=== PATIENT | female | born 1990 | race Caucasian/White ===

== ENCOUNTER 2019-10-06 02:27 | Inpatient (IN) | payer BC ==
[2019-10-06] MEDS ORDERED: ASPIR-LOW81 MG PO (04:41)
[2019-10-06] MEDS ORDERED: VITAFOL-OB+DHA1 EACH PO (04:42)
--- NOTE | 2019-10-06 13:41 | NUR ---
10/06/19 134[address] [place] [address] 1325 PATIENT BACK TO ROOM FROM OR. PATIENT AWAKE TALKING WITH STAFF. BEDSIDE REPORT FROM BRADY REINA CRNA. IV SITE INTACT, LR WITH POTOSSIN DRIPPING. PATIENT ON ROOM AIR BREATHING REGULAR AND EVEN 100% SAT. 1135 PATIENT REPORTS NO FEELING TO UBILICUS LEVEL WITH ASSESMENT. NO PAIN OR NAUSEA REPORTED. BREATHING REGULAR EVEN AND REGULAR, CONVERSING WITH . 1140 BABY TO BREAST, PATIENT APPEARS CALM AND TALKING WITH FAMILY. NO COMPLAINTS OF PAIN OR DISCOMFORT AT THIS TIME. VSS. BREATHING REGULAR AND EVEN.
--- NOTE | 2019-10-07 09:32 | PR ---
[facility] [address] [place] [facility] [place] [address] Signed PP Progress Notes Datetime Report Generated by CPN: 10/07/2019 09:32 SUBJECTIVE: [id number] Vital Signs: [id number] EXAM: [id number] IMPRESSION/PLAN/PROCEDURES: [id number] Progress Notes: Pt seen and examined. Doing well. Ambulating, voiding, and tolerating full diet. Signing Physician: Rip Bruno DO Copies: ~ *Electronically Signed* 10/07/19 0932 RIP BRUNO DO PATIENT NAME: DANUTA SEGURA PROGRESS NOTE DATE OF : 89 PHYSICIAN: RIP BRUNO DO RPT #: [id number] REPORT IS CONFIDENTIAL AND NOT TO BE RELEASED WITHOUT AUTHORIZATION
--- NOTE | 2019-10-08 07:53 | PR ---
[facility] [address] [facility] [place], [place] [address] Signed PP Progress Notes Datetime Report Generated by CPN: 10/08/2019 07:53 SUBJECTIVE: [id number] Pain: Within normal limits Nausea/Vomiting: Denies Flatus: Yes Bowel Movement: No Vital Signs: [id number] Vital Signs: Reviewed; Within Normal Limits EXAM: [id number] Cardiovascular: Normal Respiratory: Normal Abdomen/Uterus: Normal Lochia: Normal Vulva/Perineum: Not Done Breasts: Not Done CVA Tenderness: Normal Extremities: Normal Incision: Normal Progress: Normal Exam Comments: Fundus firm U-2 nontender. Incision healing well IMPRESSION/PLAN/PROCEDURES: [id number] Impression: Normal progression Plan: Discharge Progress Notes: Pt seen and examined. Doing well. Ambulating, voiding, and tolerating full diet. Pain and lochia minimal. well. Desires d/c home today. Will receive rhogam prior to d/c. F/U tomorrow for staple removal in office. All questions answered and discharge instructions given. Signing Physician: Rip Bruno DO Copies: ~ *Electronically Signed* 10/08/19 0753 RIP BRUNO DO PATIENT NAME: DANUTA SEGURA PROGRESS NOTE DATE OF : 89 PHYSICIAN: RIP BRUNO DO RPT #: [id number] REPORT IS CONFIDENTIAL AND NOT TO BE RELEASED WITHOUT AUTHORIZATION
--- NOTE | 2019-10-10 08:34 | OR ---
[facility] [address] [place], [place] [address] Signed DATE OF OPERATION: 10/06/2019 SURGEON: Rip Bruno DO PREOPERATIVE DIAGNOSIS: 1. Intrauterine at 36 and 2 weeks gestation. 2. Premature rupture of membranes. 3. Breech presentation. 4. History of gastric bypass. POSTOPERATIVE DIAGNOSES: 1. Intrauterine at 36 and 2 weeks gestation. 2. Premature rupture of membranes. 3. Breech presentation. 4. History of gastric bypass. ANESTHESIA: Spinal. SYSTEMS CONSULTANT: Amandeep Sanderson MD ([facility]) ESTIMATED BLOOD LOSS: 500 mL. FINDINGS: Viable male born in the complete jaime breech position. Normal uterus, tubes, and ovaries. COMPLICATIONS: None. INDICATIONS: Ms. Segura is a pleasant 29-year-old G1 white female at 36 weeks and 2 days gestation. She reports spontaneous rupture of membranes with no contractions or onset of labor. She was admitted. The fetus had been noted to be breech on prior ultrasound and bedside ultrasound confirmed continued jaime breech presentation. The patient was consented for a primary low transverse delivery. Risks, benefits, alternatives were discussed in detail with the patient. The patient understands and wishes to proceed with the procedure. Electronically Signed By: RIP BRUNO DO 10/10/19 0834 PATIENT NAME: DANUTA SEGURA OPERATIVE REPORT DATE OF : 89 REPORT #: [id number] PHYSICIAN: RIP BRUNO DO PCP: RIP BRUNO DO REPORT IS CONFIDENTIAL AND NOT TO BE RELEASED WITHOUT AUTHORIZATION [facility] [address] [place], [place] [address] Signed TECHNIQUE: The patient was taken to the operating room where a time-out was performed to confirm correct patient, correct procedure. Spinal anesthesia was adequately established. The patient was then prepped and draped in the supine position with a bump on the right hip. Li catheter was inserted and ICPs were on and running. Ancef 3 g were given per SCIP protocol and no heparin was indicated. Once spinal anesthetic was noted to be adequate, a Pfannenstiel skin incision was made and carried down to the fascia in the midline. The fascia was nicked and fascial incision was extended bilaterally using Singh scissors. Fascia was grasped with Jostin's, elevated, and the underlying rectus muscles were dissected bluntly and sharply. The peritoneum was then grasped with hemostats, elevated and entered sharply. Peritoneal incision was extended bilaterally using blunt dissection. The lower uterine segment was identified and survey of the pelvis demonstrates no adhesions. The John self retractor was placed and hysterotomy was performed for clear fluid. Hysterotomy was extended bilaterally using blunt dissection. The hips were grasped, the buttocks delivered with the assistance of fundal pressure. The baby was delivered up to the axilla and the arm was swept medially and delivered. The baby was rotated 180 degrees and now anterior arm was easily delivered by sweeping medially. The baby was then rotated 90 degrees to occiput anterior position. The head was flexed and the baby was delivered without difficulty. The was vigorous and cried at delivery. Cord was doubly clamped and cut. Cord blood was obtained for routine analysis. The baby was handed to the waiting pediatric team for further care. The placenta was then manually expressed intact with a centrally inserted three-vessel cord. The uterus was cleared of any remaining products of conception or clot and bleeding was noted to be light. Pitocin was given per protocol. Hysterotomy was then repaired using 0 Vicryl in a running nonlocked manner and a second imbricating stitch of 0 Vicryl was applied. Small amount of oozing was noted in the midline and this was made hemostatic with a [id number]. The pelvis was irrigated and found to be hemostatic. The John self retractor was removed and the hysterotomy was exited again examined and found to be hemostatic. ACell sheet was applied to the lower uterine segment after demonstrating normal tubes and ovaries bilaterally. The peritoneum was then reapproximated using 2-0 Vicryl in a running nonlocked manner. The rectus was examined, found to be hemostatic and was loosely reapproximated using three sutures of 0 Vicryl. Fascia was then reapproximated using 0 Vicryl in a running nonlocked manner. Subcu was reapproximated using 2-0 Vicryl after ensuring hemostasis, and the skin was reapproximated using surgical sadaf. The uterus was Crede'd for scant amount of blood. The patient was taken to PACU in good and stable condition with her baby. Sponge, needle and instrument counts were correct x2 at the end of the procedure. Dr. Sanderson was present and participated in all portions of procedure. Electronically Signed By: RIP BRUNO DO 10/10/19 0834 PATIENT NAME: DANUTA SEGURA OPERATIVE REPORT DATE OF : 89 REPORT #: [id number] PHYSICIAN: RIP BRUNO DO PCP: RIP BRUNO DO REPORT IS CONFIDENTIAL AND NOT TO BE RELEASED WITHOUT AUTHORIZATION [address] [address] Signed Rip Bruno DO JDW/MODL /[id number] Copies: ~ Electronically Signed By: RIP BRUNO DO 10/10/19 0834 PATIENT NAME: COLTONDANUTA FROST OPERATIVE REPORT DATE OF : 89 REPORT #: [id number] PHYSICIAN: RIP BRUNO DO PCP: RIP BRUNO DO REPORT IS CONFIDENTIAL AND NOT TO BE RELEASED WITHOUT AUTHORIZATION
== END 2019-10-08 15:07 | disposition home or self-care (01) | DRG 788 ==
LOC: FBCO 02:27 → FBC 03:20
PROVIDERS: Obstetrics & Gynecology; ADMIT Obstetrics & Gynecology
PROC: 10D00Z1 Extraction of Products of Conception, Low, Open Approach (ICD-10-PCS; principal; 2019-10-06 11:52)
PROC: 3E0234Z Introduction of Serum, Toxoid and Vaccine into Muscle, Percutaneous Approach (ICD-10-PCS; 2019-10-08)
DX: O32.1XX0 Maternal care for breech presentation, not applicable or unspecified (principal); Z3A.36 36 weeks gestation of pregnancy; Z37.0 Single live birth; O99.844 Bariatric surgery status complicating childbirth; O42.92 Full-term premature rupture of membranes, unspecified as to length of time between rupture and onset of labor; O26.893 Other specified pregnancy related conditions, third trimester; O99.02 Anemia complicating childbirth; D64.9 Anemia, unspecified; O99.214 Obesity complicating childbirth; E66.9 Obesity, unspecified; Z67.11 Type A blood, Rh negative; Z79.82 Long term (current) use of aspirin
CPT/HCPCS: 01961; 36415; 83030; 85027; 86850; 86870; 86900; 86901; J0690; J1885; J2274; J2590; J2790